=== PATIENT | female | born 1950 | race Caucasian/White ===

== ENCOUNTER → 2016-07-15 | Outpatient (CLI) | payer OTHER | LOC: BRMIMAGING 14:26 | PROVIDERS: ATTEND Internal Medicine | DX: M21.942 Unspecified acquired deformity of hand, left hand (principal); M25.541 Pain in joints of right hand; M85.842 Other specified disorders of bone density and structure, left hand | CPT/HCPCS: 73130-PO ==

== ENCOUNTER → 2018-06-08 | Outpatient (CLI) | payer OTHER | LOC: FIMAGING 10:07 | PROVIDERS: ATTEND Orthopaedic Surgery | DX: Z01.818 Encounter for other preprocedural examination (principal); M25.862 Other specified joint disorders, left knee ==

== ENCOUNTER 2018-06-30 05:47 | Observation (INO) | payer OTHER ==
[2018-06-30] MEDS ORDERED: DEXAMETHASONE 4 MG/ML VIAL IVP ONE (06:04)
[2018-06-30] MEDS ORDERED: FAMOTIDINE 20 MG TAB PO ONE (06:04)
[2018-06-30] MEDS ORDERED: ACETAMINOPHEN 325 MG TAB PO ONE (06:04)
[2018-06-30] MEDS ORDERED: ceFAZolin 2 GM/DEXTROSE 100 ML IV ONE (06:04)
[2018-06-30] MEDS ORDERED: LR 1,000 ML IV ONE (06:06)
--- NOTE | 2018-06-30 06:13 | PDHPUP ---
History & Physical Update H&P update statement: This history and physical update is based on an assessment of the patient which was completed after admission or registration (within 24 hours), but prior to the surgery/procedure. H&P update: H&P reviewed & patient examined, no change in patient's condition since H&P completed
[2018-06-30] MEDS ORDERED: TRANEXAMIC ACID 3,000 MG/50 ML BAG IRR ONE (06:46)
[2018-06-30] MEDS ORDERED: MIDAZOLAM 2 MG/2 ML VIAL ONE (07:01)
[2018-06-30] MEDS ORDERED: PROPOFOL/EMULSION 500 MG/50 ML BOTTLE IV ONE (07:07)
[2018-06-30] MEDS ORDERED: BUPIVACAINE 0.25% 30 ML SDV ONE (07:10)
[2018-06-30] MEDS ORDERED: TRANEXAMIC ACID 3,000 MG in NS (SYRINGE) 50 ML IRR ONE (07:15)
[2018-06-30] MEDS ORDERED: ROPIVACAINE 0.2% 80 MG, EPINEPHrine 0.2 MG, KETOROLAC TROMETHAMINE 30 MG in SYRINGE 0 ML IU ONE (07:15)
[2018-06-30] MEDS ORDERED: fentaNYL 100 MCG/2 ML INJ ONE (07:22)
--- NOTE | 2018-06-30 07:27 | PDANEPAE ---
ANE History of Present Illness tka ANE Past Medical History - Cardiovascular History Hx Hypertension: No Hx Arrhythmias: Yes Hx Chest Pain: No Hx Coronary Artery / Peripheral Vascular Disease: No Hx CHF / Valvular Disease: No Hx Palpitations: No - Pulmonary History Hx COPD: No Hx Asthma/Reactive Airway Disease: No Hx Recent Upper Respiratory Infection: No Hx Oxygen in Use at Home: No Hx Sleep Apnea: No Sleep Apnea Screening Result - Last Documented: Negative - Neurologic History Hx Cerebrovascular Accident: No Hx Seizures: Yes Hx Dementia: No Neurologic History Comment: head injury 1995 - Endocrine History Hx Diabetes: No Hypothyroid: No Hyperthyroid: No Obesity: no - Renal History Hx Renal Disorders: No - Liver History Hx Hepatic Disorders: No - Neurological & Psychiatric Hx Hx Neurological and Psychiatric Disorders: Yes Neurological / Psychiatric History Comment: severe anxiety - Cancer History Hx Cancer: Yes Cancer History Comment: sweat cell cancer - Congenital Disorder History Hx Congenital Disorders: No - GI History GERD: no Hx Gastrointestinal Disorders: No Gastrointestinal History Comment: acid reflux 4 years ago - Other Health History Other Health History: [place] - Chronic Pain History Chronic Pain: No (arthritis) - Surgical History Prior Surgeries: hysterectomy/prolapse repair ANE Review of Systems Review of Systems: - Exercise capacity Exercise capacity: >=4 METS METS (RN): 4 METS - 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 Model: [id number] ANE Patient History - Allergies Allergies/Adverse Reactions: No Known Allergies Allergy (Verified 06/16/18 12:19) - Home Medications Home medications: home medication list seen and reviewed Home Medications: Calcitriol [Calcitriol (*)] 0.25 mcg PO BID 06/09/18 [Last Taken 06/29/18] Calcium Carb W/Vit D [Calcium Carb W/Vit D 500/200 (*)] 500 mg PO DAILY [Last Taken 2 Weeks Ago ~06/16/18] Estradiol [Estrace Vaginal (*)] 1 ger VG Q3D 06/09/18 [Last Taken 3 Weeks Ago ~ 06/09/18] Levothyroxine [Synthroid 88 mcg (*)] 88 mcg PO DAILY@05 06/09/18 [Last Taken 04:15] Magnesium Oxide [Magnesium Oxide 400 mg (*)] 400 mg PO DAILY 06/09/18 [Last Taken 2 Weeks Ago ~06/16/18] Omeprazole 20 mg PO DAILY PRN 06/09/18 [Last Taken 06/30/18 04:15] Pravastatin Sodium 20 mg PO HS 06/09/18 [Last Taken 06/26/18] SUMAtriptan [Imitrex 25 MG (*)] 25 mg PO Q2H PRN 06/09/18 [Last Taken 2 Months Ago ~04/29/18] clonazePAM [klonoPIN (*)] 1 mg PO HS 06/09/18 [Last Taken 06/29/18] - NPO status NPO Status: no food or drink >8 hours NPO Since - Liquids (Date): 06/30/18 NPO Since - Liquids (Time): 04:15 NPO Since - Solids (Date): 06/29/18 NPO Since - Solids (Time): 19:00 - Smoking Hx Smoking Status: Former smoker - Family Anes Hx Family Hx Anesthesia Complications: unknown ANE Labs/Vital Signs - Vital Signs Blood Pressure: 129/77 Heart Rate: 90 Respiratory Rate: 18 O2 Sat (%): 97 Height: 172.72 cm Weight: 65.771 kg ANE Physical Exam - Airway Mallampati Score: Class 2 Mouth exam: normal dental/mouth exam - Pulmonary Pulmonary: no respiratory distress - Cardiovascular Cardiovascular: regular rate and rhythym - ASA Status ASA Status: II ANE Anesthesia Plan Anesthesia Plan: spinal Regional Anesthesia: adductor canal FNB
[2018-06-30] MEDS ORDERED: ROPIVACAINE HCL 150 MG/30 ML INJ ONE (07:42)
[2018-06-30] MEDS ORDERED: LIDOCAINE 2% 5 ML SDV ONE (07:42)
[2018-06-30] MEDS ORDERED: LACTULOSE 20 GM/30 ML UDCUP PO PRN (07:59)
[2018-06-30] MEDS ORDERED: CYCLOBENZAPRINE 10 MG TAB PO PRN (07:59)
[2018-06-30] MEDS ORDERED: PROMETHAZINE HCL 25 MG SUPPR PR PRN (07:59)
[2018-06-30] MEDS ORDERED: POLYETHYLENE GLYCOL 3350 17 GM PKT PO PRN (07:59)
[2018-06-30] MEDS ORDERED: MAGNESIUM HYDROXIDE 30 ML UDCUP PO PRN (07:59)
[2018-06-30] MEDS ORDERED: BISACODYL 10 MG SUPP PR PRN (07:59)
[2018-06-30] MEDS ORDERED: PROMETHAZINE HCL 25 MG/ML INJ IVP PRN (07:59)
[2018-06-30] MEDS ORDERED: TEMAZEPAM 15 MG CAP PO PRN (07:59)
[2018-06-30] MEDS ORDERED: diphenhydrAMINE 25 MG CAP PO PRN (07:59)
[2018-06-30] MEDS ORDERED: DIPHENOXYLATE/ATROPINE LOMOTIL 1 TAB PO PRN (07:59)
[2018-06-30] MEDS ORDERED: METOCLOPRAMIDE 10 MG/2 ML VIAL IVP PRN (07:59)
[2018-06-30] MEDS ORDERED: ONDANSETRON DISINTEGRATING 4 MG TAB PO PRN (07:59)
[2018-06-30] MEDS ORDERED: ONDANSETRON 4 MG/2 ML VIAL IVP PRN ×2 (07:59→08:10)
[2018-06-30] MEDS ORDERED: LR 1,000 ML IV SCH (08:00)
[2018-06-30] MEDS ORDERED: SUMAtriptan 25 MG TAB PO PRN (08:00)
[2018-06-30] MEDS ORDERED: PROPOFOL 200 MG/20 ML VIAL ONE (08:04)
[2018-06-30] MEDS ORDERED: NALOXONE HCL 0.4 MG/ML INJ IVP PRN (08:10)
[2018-06-30] MEDS ORDERED: ALBUTEROL 3 ML DEYVIAL IH PRN (08:10)
[2018-06-30] MEDS ORDERED: LABETALOL HCL 5 MG/ML 20 ML MDV IVP PRN (08:10)
[2018-06-30] MEDS ORDERED: LR 500 ML IV PRN (08:10)
[2018-06-30] MEDS ORDERED: fentaNYL 100 MCG/2 ML INJ IVP PRN (08:10)
[2018-06-30] MEDS ORDERED: ENALAPRILAT DIHYDRATE 1.25 MG/ML VIAL IVP PRN (08:10)
--- NOTE | 2018-06-30 08:40 | POSTOPPROG ---
Post Op Note Date of Operation: 06/30/18 Surgeon: Liv Jones Senior [employer] Consultant: lianna Horan PA-C and Keren Jones PA-C Anesthesiologist: dr. wilkerson Anesthesia: Spinal, Other (Specify) (adductor canal block) Pre-op Diagnosis: left knee OA Post-op Diagnosis: same Indication: left knee pain Procedure: L TKA robot assisted Findings: severe knee OA Inf/Abcess present in the surg proc area at time of surgery?: No EBL: 50-100
--- NOTE | 2018-06-30 08:50 | POSTANESTH ---
Post Anesthetic Evaluation Cardiovascular Status: Normal, Stable Respiratory Status: Normal, Stable Level of Consciousness/Mental Status: Can Participate in Eval Pain Control: Adequate, Prn Tx Ordered Nausea/Vomiting Control: Adequate, Prn Tx Ordered Complications Possibly Related to Anesthesia: None Noted
[2018-06-30] MEDS: SENNOSIDES/DOCUSATE SODIUM TAB PO SCH ×2 (10:20→20:10)
[2018-06-30] MEDS: CALCITRIOL 0.25 MCG CAP PO SCH ×2 (10:20→20:14)
[2018-06-30] MEDS: oxyCODONE IR 5 MG TAB PO PRN ×4 (11:47→23:10)
[2018-06-30] MEDS: ACETAMINOPHEN 325 MG TAB PO SCH ×3 (11:47→23:02)
[2018-06-30] MEDS: ceFAZolin 2 GM/DEXTROSE 100 ML IV SCH ×2 (13:55→22:58)
[2018-06-30] MEDS: ASPIRIN 81 MG CHEWABLE TAB PO SCH (20:09)
[2018-06-30] MEDS: FAMOTIDINE 20 MG TAB PO SCH (20:10)
[2018-06-30] MEDS ORDERED: PRAVASTATIN SODIUM 20 MG TAB PO SCH (21:00)
[2018-06-30] MEDS ORDERED: clonazePAM 1 MG TAB PO SCH (21:00)
[2018-07-01] MEDS ORDERED: LEVOTHYROXINE 88 MCG TAB PO SCH (05:00)
[2018-07-01 07:22] VITALS: BP 120/68
[2018-07-01] MEDS: SENNOSIDES/DOCUSATE SODIUM TAB PO SCH (07:57)
[2018-07-01] MEDS: FAMOTIDINE 20 MG TAB PO SCH (07:58)
[2018-07-01] MEDS: ASPIRIN 81 MG CHEWABLE TAB PO SCH (07:58)
[2018-07-01] MEDS: CALCITRIOL 0.25 MCG CAP PO SCH (07:59)
[2018-07-01] MEDS: ACETAMINOPHEN 325 MG TAB PO SCH (07:59)
[2018-07-01] MEDS: oxyCODONE IR 5 MG TAB PO PRN (08:24)
--- NOTE | 2018-07-01 09:13 | SOAPPROG ---
SOAP Progress Note Assessment/Plan: Assessment: Patient is doing well POD 1 s/p L TKA Pain management: pain is well controlled on oral pain meds. VTE ppx: recommend aspirin 81 mg BID for 4 weeks, cont JANES and SCDs Anemia: level is expected initially postop. Asymptomatic. Continue to monitor D/c planning: Patient has done better than anticipated and would like to be discharged to home today. Patient must be released from PT before discharge to home. postop urinary retention: straight cath'd yesterday, resolved today. Plan: 07/01/18 09:12 Subjective: patient is doing well, denies SOB ,chest pain and N/v Objective: Vital Signs Temp Pulse Resp BP Pulse Ox 36.6 C 62 17 120/68 98 07/01/18 07:21 07/01/18 07:21 07/01/18 07:21 07/01/18 07:21 07/01/18 07:21 Laboratory Results 07/01/18 04:36 06/30/18 07/01/18 07/02/18 05:59 05:59 05:59 Intake Total 1620 Output Total 3350 Balance -1730 LLE; incision dressing is clean and dry, NVi, +pf/df ICD10 Worksheet Patient Problems: Problems Problem Status Onset Primary localized osteoarthritis of left knee Acute
--- NOTE | 2018-07-01 09:36 | ASMTLACE ---
NINO Length of stay for Answers: 2 days current admission Acuity / Level of Answers: No Care: Did the patient have an inpatient admission? Comorbidities - select Answers: Other Notes: Hx of seizures all that apply # of Emergency department Answers: 0 visits in the last 6 months Social determinants Answers: Mental health diagnosis (anxiety, depression, pers onality disorders, etc.) Score: 6 Date Signed: 07/01/2018 09:35 AM Electronically Signed By:ADAN Conway
--- NOTE | 2018-07-01 11:41 | GDS ---
[f rep st] DISCHARGE SUMMARY SUPERVISING PHYSICIAN: Sania Jones MD ADMISSION DIAGNOSIS: Left knee osteoarthritis. DISCHARGE DIAGNOSIS: Left knee osteoarthritis. PROCEDURE: Left total knee arthroplasty, robot-assisted. VTE PROPHYLAXIS: Recommend aspirin 81 mg twice daily for 4 weeks. BRIEF DESCRIPTION OF HOSPITAL STAY: Patient was admitted for an elective joint arthroplasty. The pa tient tolerated the procedure well and has passed physical therapy. The patient was given appropriat e antibiotic prophylaxis and venous thromboembolism prophylaxis. The patient's pain was well control led on oral pain medication, patient was holding down food, and had urinated. Decision was made to d ischarge the patient. The patient was given post-operative prescriptions pre-operatively. PLAN: Follow up with Dr. Jones's office on July 22 at 11 a.m. /[id number]/MODL
--- NOTE | 2018-07-01 18:12 | GOP ---
[f rep st] OPERATIVE REPORT DATE OF OPERATION: 06/30/2018 SURGEON: Sania Jones MD STATIONARY EQUIPMENT MECHANIC: 1. Keren Jones PA-C. 2. Brielle Horan PA-C. ANESTHESIA: Spinal. PREOPERATIVE DIAGNOSIS: Left knee osteoarthritis. POSTOPERATIVE DIAGNOSIS: Left knee osteoarthritis. PROCEDURE PERFORMED: Left total knee arthroplasty with computer navigation, robotic assist. FINDINGS: ESTIMATED BLOOD LOSS: 30 cc. INDICATIONS: The patient is a 67-year-old female with severe and progressive pain and deformity of t he left knee unresponsive to conservative care. The risks and benefits of surgical intervention were explained in detail. DESCRIPTION OF PROCEDURE: The patient was brought to the operative room and placed on the table in t he supine position. Spinal anesthesia was induced without difficulty. A pneumatic tourniquet was appl ied about the left proximal thigh, and the leg was prepped and draped in a sterile fashion. The leg h older was applied. After exsanguination by elevation the tourniquet was inflated to 250 mmHg. Incision was made anterior medial from the tibial tuberosity to a point cm proximal to the superior pole of the patella. Medial parapatellar arthrotomy was carried out from the superior pole of the pat kole and posteriorly in line with the fibers of the Type II VMO. The medial collateral ligament was e levated and the infrapatellar fat pad was resected. The patella was everted and the articular surface was excised. A 35 mm patellar button was placed. Attention was turned first to the distal aspect of the femur. After exposure of the femur, 2 half pi ns were placed for fixation of the femoral array. In a similar fashion, 2 pins were placed anteromed ial on the tibia for fixation of the tibial array. External land marking and registration of the hip center was performed without difficulty. Internal femoral and tibial registration was carried out w ithout difficulty and the femoral and tibial checkpoints were placed and verified for accuracy. Attention was turned to the femur. The foot print for the size 5 femoral component was cut with the saw using the [employer] robotic system and verified for accuracy against the CT based plan. In a similar f ashion, the saw was used to cut the footprint for the size 5 tibial component using the CHANA system an d verified for accuracy against the CT based plan. The tibial articular surface was excised without d ifficulty, followed by the intercondylar box cut. The knee was extended and the remnants of the medial and lateral meniscus were excised. The posterior capsule was injected with ropivacaine, epinephrine and Toradol. A size 5 tibial tray was positioned . Trial reduction was then carried out. There was excellent range of motion, alignment, and stability using the 5 mm x 11 mm polyethylene. All trials were then removed. The joint was thoroughly irrigated and carefully dried. The Press-Fit c omponents were implanted. The permanent 5 mm x 11 mm polyethylene was placed without difficulty. The tourniquet was deflated and all bleeders were coagulated. The wound was thoroughly irrigated and closed using interrupted sutures of 2-0 Vicryl for the joint capsule. The subcu was closed with 3-0 V icryl and the skin with 4-0 Monocryl. Dermabond and Steri-Strips were applied followed by a compress jayesh dressing. The patient was then moved from the operating room to the recovery room in good conditi on, having tolerated the procedure well. /[id number]/MODL
== END 2018-07-01 10:30 | disposition home or self-care (01) ==
LOC: F3N 05:47 → INTOOBSV 05:47 → F3N 10:12
PROVIDERS: ADMIT Orthopaedic Surgery; ATTEND Orthopaedic Surgery
DX: M17.12 Unilateral primary osteoarthritis, left knee (principal); F41.9 Anxiety disorder, unspecified; Z95.0 Presence of cardiac pacemaker; M81.0 Age-related osteoporosis without current pathological fracture; F32.9 Major depressive disorder, single episode, unspecified; G40.909 Epilepsy, unspecified, not intractable, without status epilepticus
CPT/HCPCS: 27447; 73560; 88311; 97116; 97161; C1776; J0171; J0690; J1100; J1885; J2250; J2704; J2795; J3010